=== PATIENT | female | born 1990 | race Hispanic/Latino ===

== ENCOUNTER 2018-11-20 10:22 | Day surgery (SDC) | payer MEDICAID ==
[2018-11-17 11:32] VITALS: BMI 35.5
[2018-11-20] MEDS ORDERED: Lidocaine 1% Inj (20ml) IJ ONE (10:52)
[2018-11-20] MEDS ORDERED: ceFAZolin 1 GM in Sodium Chloride 0.9% 100 ML IVPB ONE (10:52)
[2018-11-20] MEDS ORDERED: Bupivacaine 0.25% Inj(30mL) IJ ONE (10:52)
--- NOTE | 2018-11-20 10:56 | CP.PCM.PN ---
Subjective - Date & Time of Evaluation Date of Evaluation: 11/20/18 Time of Evaluation: 10:53 - Subjective Subjective: Podiatry progress note for Dr. Jimenez, 28 y/o female with no significant PMHx seen and evaluated in [facility] for left ankle ORIF. Patient states she tripped and fell while walking on ice about 2 weeks ago. patient went to the [place] [facility] and was referred to Podiatry. Patient states she has been in a splint since, and has been using crutches. Patient states she takes Ibuprofen for the pain. Patient denies needing Percocet for the pain. Patient last ate or drank about 8 PM. Patient states she has had 3 c- sections, and denies any adverse reactions to anesthesia. PMHx: Migraines PSHX: 3 C-sections Allergies: Latex, Shrimp, Peanuts Objective - Constitutional Appears: Well, Non-toxic, No Acute Distress - Head Exam Head Exam: ATRAUMATIC, NORMOCEPHALIC - Extremities Exam Additional comments: Dressing to the LLE clean, dry and intact, CFT less than 3 seconds X 5 Patient able to wiggle her digits sensation intact - Neurological Exam Neurological Exam: Alert, Awake, Oriented x3 - Psychiatric Exam Psychiatric exam: Normal Affect, Normal Mood Assessment and Plan - Assessment and Plan (Free Text) Assessment: 28 y/o female patient seen and evaluated in [facility] for L ankle surgery Plan: Pt was seen and examined in [facility] Pt NPO status was confirmed All pre-op testing and clearance in chart Pt has exhausted all conservative treatment at this time and is opting for surgical intervention Pt was explained procedure and post-operative course All pt's questions were answered to satisfaction No guarantees were made Pt understands all risks, benefits and complications of procedure Pt will follow-up with Dr. Jimenez within 1 week of surgery
--- NOTE | 2018-11-20 10:58 | CP.SDSHP ---
Same Day Surgery H & P - History Proposed Procedure: Left ankle fracture ORIF Pre-Op Diagnosis: Left ankle trimalleolar fracture - Previous Medical/Surgical History Pain: 4.Moderate Pain - Allergies Allergies: Allergies latex Allergy (Verified 11/17/18 11:33) ITCHING peanut Allergy (Verified 11/17/18 11:33) SHORTNESS OF BREATH HIVES shrimp Allergy (Verified 11/17/18 11:33) SHORTNESS OF BREATH HIVES - Physical Exam Neuro: WNL - {Optional Preform as Required} Integument: WNL - Impression Pt. Evaluated Today:Candidate for Anesthesia & Procedure: Yes - Date & Time Date: 11/20/18 Time: 10:58 Short Stay Discharge - Short Stay Discharge Admitting Diagnosis/Reason for Visit: O82.855B Disposition: HOME/ ROUTINE Additional Instructions (Diet, Activity): -Patient in good/stable condition for discharge home -Pt to resume medications per medical reconciliation -Resume regular diet -Please keep dressing clean, dry, & intact to surgical site -Use plastic bag over bandage for showering -Wear post op shoe at all times when ambulating -Call clinic if you see signs of infection (redness, swelling, malodor) -Please make an appointment to see Dr. Jimenez in office/clinic within 1 week for post-op check Progress Note/Discharge Note with Instructions: - Patient evaluated bedside in recovery s/p L ankle surgery - After surgical procedure patient in NAD - (+) Void, (+) Appetite - Capillary refill time <3s and NVS intact. - Patient denies complaints at this time. - Post operative instructions and plan of care explained to patient at length. - Patient. acknowledges verbal understanding. - Patient stable for DC per podiatric surgery
[2018-11-20] MEDS ORDERED: Sodium Chloride 0.9% 1,000 ML IV SCH (11:00)
[2018-11-20] MEDS ORDERED: Lactated Ringer's 1,000 ML IV ONE (11:34)
[2018-11-20] MEDS ORDERED: Midazolam 2 MG/2 ML VIAL ONE (12:01)
[2018-11-20] MEDS ORDERED: Bupivacaine HCl 0.5% PF (30 ml) Inj ONE (12:04)
[2018-11-20] MEDS ORDERED: Propofol 10 mg/ml Inj (20 ML) ONE (12:04)
[2018-11-20] MEDS ORDERED: Succinylcholine Chloride 20 mg/ml Syr (5 ml) IV ONE (12:04)
[2018-11-20] MEDS ORDERED: Lidocaine 2% PF (10 ml) Amp ONE (12:04)
[2018-11-20] MEDS ORDERED: Ropivacaine 0.5% 30ML IV ONE (12:06)
[2018-11-20] MEDS ORDERED: Rocuronium 10 mg/ml (5 ml) ONE (13:05)
[2018-11-20] MEDS ORDERED: HYDROmorphone 0.5 mg/0.5 ml ISec IVP PRN (13:17)
--- NOTE | 2018-11-20 13:19 | PCM.ANESB2 ---
Popliteal Nerve Block - Popliteal Nerve Block Date of Procedure: 11/20/18 Anesthesiologist: [email or web address] Pre-Procedure Diagnosis: ankle fx Post-Procedure Diagnosis: same Procedure Performed: Popliteal Nerve Block Left - Procedure Popliteal Nerve Block: This procedure was explained to the patient that it is for post-operative pain management. Consent was obtained after a thorough discussion with the patient regarding the benefits and possible complications of local anesthetic block of the sciatic nerve at the popliteal level. The patient was brought to the operating room and standard monitors are applied. Time-out was held with the circulating nurse to confirm the correct surgery and the appropriate block. After applying oxygen by nasal cannula and administering IV Sedation, patient's operative leg was gently raised and supported and the groove in between the biceps femoris and vastus lateralis muscles was carefully palpated. The skin approximately 8cm above the popliteal crease was then marked. The ultrasound transducer was then applied to the posterior thigh approximately 8cm above the popliteal crease in the transverse plane and the sciatic nerve before its division was visualized lateral to the popliteal artery and in between the bicep femoris and semimembranosus/semitendinosus muscles. After identification, the lateral portion of the thigh was prepped with Betadine solution three times and Lidocaine 1% was injected subcutaneously for topical anesthesia. At this point, a # 21 gauge Stimuplex insulated 4 inch needle was inserted into pre-marked area and advanced in a perpendicular direction. The needle was inserted above the ultrasound transducer in-plane towards the sciatic nerve in a [id number] direction. Needle advancement was performed carefully under direct ultrasound visualization. Nerve stimulator was used and dorsiflexion of the left foot was elicited at a current of __2.0___ MA. After repeated negative aspiration, __20___cc of __0.5___ % __ropivicaine was injected. Under ultrasound guidance the local anesthetics were observed surrounding sciatic nerve . The needle was removed intact and sterile dressing was applied. The patient tolerated the popliteal nerve block well with stable vital signs and was subsequently prepared for the surgery. No paresthesia was experienced by patient.
[2018-11-20] MEDS ORDERED: Dexamethasone 4 mg/1 ml ONE ×2 (13:21→14:23)
[2018-11-20] MEDS ORDERED: Phenylephrine 10 mg/ml Inj ONE (13:27)
[2018-11-20] MEDS ORDERED: Lactated Ringer's 500 ML IV ONE (14:30)
[2018-11-20] MEDS ORDERED: Esmolol 100 mg/10ml Inj IV ONE (14:42)
[2018-11-20 17:08] VITALS: O2SAT 98
[2018-11-20 18:35] VITALS: BP 110/62; PULSE 88; RESP 18; TEMP 98
--- NOTE | 2018-11-21 09:59 | RAD ---
Date of service: 11/20/2018 PROCEDURE: Left Ankle Radiographs. HISTORY: s/p ankle orif COMPARISON: None available. FINDINGS: BONES: Status post open reduction internal fixation. Fracture fragments are anatomically aligned. No evidence of orthopedic hardware failure. JOINTS: Normal. No osteoarthritis. Ankle mortise maintained. Talar dome intact SOFT TISSUES: Normal. OTHER FINDINGS: None. IMPRESSION: Satisfactory postoperative status.
--- NOTE | 2018-11-21 16:33 | PCM.SURG1 ---
Surgeon's Initial Post Op Note - Surgeon's Notes Surgeon: Dr. Jimenez, DPM Third Miller: Migdalia García PGY3, Autumn Jordan PGY2, Merrill Dudley PGY1 Type of Anesthesia: General Endo Anesthesia Administered By: Dr. Mcconnell Pre-Operative Diagnosis: L ankle tri-malleolar fracture Operative Findings: see dictation. I: Popliteal Block pre-operatively. m: Synthese Screw and Plate System, 2-0 Vicryl, 4-0 Vicryl, 3-0 Nylon Post-Operative Diagnosis: same as above Operation Performed: Left ankle Open Reduction Internal Fixation with Synthes screw and plate system Specimen/Specimens Removed: none Estimated Blood Loss: EBL {In ML}: 15 Blood Products Given: N/A Drains Used: No Drains Post-Op Condition: Good Date of Surgery/Procedure: 11/21/18 Time of Surgery/Procedure: 16:33
--- NOTE | 2018-11-22 06:39 | OP ---
P CRISTIANEDURE DATE: 11/20/2018 PREOPERATIVE DIAGNOSIS: Trimalleolar fracture, left ankle. POSTOPERATIVE DIAGNOSIS: Trimalleolar fracture, left ankle. PROCEDURE: Open reduction and internal fixation, surgical repair of left ankle fracture with trans-syndesmotic screw fixation. SURGEON: Bahman Jimenez DPM SANDWICH ARTIST: Dr. Migdalia García, PGY-3; Dr. Autumn Ji, PGY-2; Dr. Merrill Dudley, PGY-1 TYPE OF ANESTHESIA: General. HEMOSTASIS: Thigh tourniquet at 350 mmHg. DESCRIPTION OF PROCEDURE: The patient was brought to the operating room and positioned supine on the operating room table. After induction of general anesthesia administered by the anesthesiologist, the patient was prepped and draped in the usual sterile manner. An Esmarch bandage was used to exsanguinate the foot and ankle and the tourniquet was inflated. The patient was rotated with a bump placed under her hip and the foot and ankle elevated on a bump. The patient was rotated inward so that the lateral aspect of the ankle was facing up. A linear incision was made over the crust of the fibula extending to the lateral malleolus. Utilizing meticulous sharp and blunt dissection, the incision was deepened through the subcutaneous layer. All bleeders and catheters were clamped, cut and coagulated with a Bovie unit. No major neurovascular structures were encountered. A linear incision was made into the periosteum and the fibular fracture was identified. It was noted to be an oblique fracture with comminution. A curette was utilized to remove the debris from the fracture and the anterior-inferior margin extending to the posterior-superior margin were identified. The ankle and foot were rotated to distract the fracture fragments and then the fracture was reduced with a bone reduction clamp. Intraoperative fluoroscopy was utilized to confirm proper roman catholic of length of the fibula and proper reduction of the fracture. The fracture was then fixated with one 3.5 mm Suero threaded cortical screw, which was driven in a lag fashion according to the standard AO screw fixation principles, which successfully compressed and stabilized the fracture. The bone reduction clamp was then removed. A 7-hole plate was then applied. The two distal screws were cancellous screws and the three proximal screws were cortical screws. Intraoperative fluoroscopy was utilized to confirm proper placement of the screws and the plate and to ensure that the joints have not been entered. A stress mortise view was then taken and there was noted to be medial gapping and evidence of a syndesmotic displacement. The decision was therefore made to stabilize the syndesmosis with a trans-syndesmotic screw. A trans-syndesmotic screw was then driven from the fibula to the tibia. A 3.5 cortical screw was driven purchasing 3 cortices. The stress reduction views were then repeated and it was noted that there was excellent stabilization of the syndesmosis. During the procedure of the trans-syndesmotic screw, the ankle joint was maximally dorsiflexed. Intraoperative fluoroscopy was utilized to evaluate the reduction of the fractures. The medial malleolar fracture was noted to be stable and the posterior malleolus fracture was noted to be reduced in excellent position with no gapping and that the contour of the tibial plafond was congruent. The decision was therefore made not to fixate this fragment. The surgical site was then irrigated with sterile saline solution. The periosteum was repaired with 2-0 Vicryl suture. The subcutaneus layer was repaired with 3-0 Vicryl suture and the skin was repaired with 3-0 nylon suture. A postoperative injection of 0.5% plain Marcaine was administered. A total of 20 mL was administered. A dry sterile compressive dressing was then applied and the tourniquet was deflated. There was noted to be instant hyperemic response to all 5 digits. A [id number] Sophia-Cross AO splint was then applied with the ankle joint at 90 degrees. The patient was stable throughout the entire procedure and tolerated the procedure well. The patient was returned to the recovery room in stable condition. Verbal and written instructions were provided for the patient as were prescriptions for pain management with instructions on nonweightbearing with crutches. Bahman Jimenez DPM
== END 2018-11-20 19:07 | disposition home or self-care (01) ==
LOC: H.OPSURG 10:22
PROVIDERS: ATTEND Podiatrist Foot & Ankle Surgery
DX: S82.852A Displaced trimalleolar fracture of left lower leg, initial encounter for closed fracture (principal); E78.5 Hyperlipidemia, unspecified; K29.70 Gastritis, unspecified, without bleeding; Y93.01 Activity, walking, marching and hiking; W01.0XXA Fall on same level from slipping, tripping and stumbling without subsequent striking against object, initial encounter
CPT/HCPCS: 27822; 73610; 97161; G8978; G8979; J0690; J1100; J1170; J1885; J2001; J2250; J2370; J2704; J2765; J3010; J7120